=== PATIENT | female | born 1970 | race Caucasian/White ===

== ENCOUNTER 2023-05-07 10:08 | Emergency (ER) | payer SELFPAY ==
[2023-05-07] MEDS ORDERED: Ketorolac 60 MG/2 ML SDV IM ONE (11:10)
[2023-05-07] MEDS ORDERED: Cyclobenzaprine 10 MG Tab PO ONE (11:11)
== END 2023-05-07 13:00 | disposition home or self-care (01) ==
LOC: MW.ED 10:08
DX: M54.6 Pain in thoracic spine (principal)
CPT/HCPCS: 71046; 93005; 96372; 99283; A9270; J1885; 93010

== ENCOUNTER 2023-09-25 08:39 | Emergency (ER) | payer SELFPAY | END 2023-09-25 10:51 | disposition home or self-care (01) | LOC: MW.ED 08:39 | DX: F32.A Depression, unspecified (principal); I10 Essential (primary) hypertension; J45.909 Unspecified asthma, uncomplicated; Z75.8 Other problems related to medical facilities and other health care | CPT/HCPCS: 99282; 99283 ==

== ENCOUNTER 2024-02-05 07:23 | Emergency (ER) | payer SELFPAY ==
[2024-02-05] MEDS: Sodium Chloride 0.9% 10 ML Syringe FLUSH PRN (07:58)
[2024-02-05] MEDS: Albuterol/Ipratropium 3.0-0.5 MG/3 ML Neb Soln NEB ONE (07:58)
[2024-02-05] MEDS: Sodium Chloride 0.9% 2.5 ML Syringe FLUSH PRN (07:58)
[2024-02-05 08:16] LABS: BASOPHILS ABSOLUTE AUTO 0.07 K/uL (0.00-0.20); BASOPHILS PERCENT AUTO 1.5 % (0.0-1.0); EOSINOPHILS ABSOLUTE AUTO 0.33 K/uL (0.00-0.45); EOSINOPHILS PERCENT AUTO 6.9 % (0.0-6.0); HEMATOCRIT 43.3 % (37.0-47.0); HEMOGLOBIN 14.6 g/dL (12.0-16.0); IMMATURE GRAN ABSOLUTE AUTO 0.01 K/uL (0.00-0.05); IMMATURE GRAN PERCENT AUTO 0.2 % (0.0-0.4); LYMPHOCYTES ABSOLUTE AUTO 1.95 K/uL (1.00-4.80); LYMPHOCYTES PERCENT AUTO 40.6 % (24.0-44.0); MEAN CORPUSCULAR HEMOGLOBIN 29.9 pg (28.0-32.0); MEAN CORPUSCULAR HGB CONC 33.7 g/dL (32.0-36.0); MEAN CORPUSCULAR VOLUME 88.7 fL (83.0-99.0); MEAN PLATELET VOLUME 9.3 fL (9.4-12.3); MONOCYTES ABSOLUTE AUTO 0.41 K/uL (0.00-0.80); MONOCYTES PERCENT AUTO 8.5 % (0.0-8.0); NEUTROPHILS ABSOLUTE AUTO 2.03 K/uL (1.80-7.70); NEUTROPHILS PERCENT AUTO 42.3 % (41.0-71.0); PLATELET COUNT,PLT 289 K/uL (150-400); RED BLOOD CELL COUNT 4.88 M/uL (4.10-5.30)
[2024-02-05 08:42] LABS: ALBUMIN 3.7 g/dL (3.4-5.0); BILIRUBIN TOTAL 0.4 mg/dL (0.2-1.0); CALCIUM 9.2 mg/dL (8.5-10.1); CARBON DIOXIDE,CO2 24.5 mmol/L (21.0-32.0); CREATININE 0.7 mg/dL (0.6-1.0); EST CRCL DRUG DOSING (CG) 89.01 mL/min; PROTEIN TOTAL,TP 7.4 g/dL (6.4-8.2)
[2024-02-05] MEDS: Lisinopril 10 MG Tab PO ONE (10:44)
== END 2024-02-05 11:34 | disposition home or self-care (01) ==
LOC: MW.ED 07:23
DX: R42 Dizziness and giddiness (principal); R07.9 Chest pain, unspecified
CPT/HCPCS: 36415; 70450; 71045; 80053; 84484; 85025; 85379; 93005; 99285; J3490; 99283; J7620-GY

== ENCOUNTER 2024-05-20 03:50 | Emergency (ER) | payer SELFPAY ==
[2024-05-20] MEDS: Sodium Chloride 0.9% 10 ML Syringe FLUSH PRN (04:25)
[2024-05-20] MEDS: Ondansetron 4 MG/2 ML SDV IVPUSH ONE (04:25)
[2024-05-20] MEDS: Morphine 4 MG/ML Syringe IVPUSH ONE (04:25)
[2024-05-20] MEDS: Sodium Chloride 0.9% 1,000 ML IV ONE (04:25)
[2024-05-20 04:26] LABS: BASOPHILS ABSOLUTE AUTO 0.06 K/uL (0.00-0.20); BASOPHILS PERCENT AUTO 1.1 % (0.0-1.0); EOSINOPHILS ABSOLUTE AUTO 0.22 K/uL (0.00-0.45); EOSINOPHILS PERCENT AUTO 3.9 % (0.0-6.0); HEMOGLOBIN 13.7 g/dL (12.0-16.0); IMMATURE GRAN ABSOLUTE AUTO 0.01 K/uL (0.00-0.05); IMMATURE GRAN PERCENT AUTO 0.2 % (0.0-0.4); LYMPHOCYTES ABSOLUTE AUTO 1.59 K/uL (1.00-4.80); LYMPHOCYTES PERCENT AUTO 28.5 % (24.0-44.0); MEAN CORPUSCULAR HEMOGLOBIN 29.9 pg (28.0-32.0); MEAN CORPUSCULAR HGB CONC 34.3 g/dL (32.0-36.0); MEAN CORPUSCULAR VOLUME 87.3 fL (83.0-99.0); MEAN PLATELET VOLUME 9.7 fL (9.4-12.3); MONOCYTES ABSOLUTE AUTO 0.56 K/uL (0.00-0.80); NEUTROPHILS ABSOLUTE AUTO 3.14 K/uL (1.80-7.70); NEUTROPHILS PERCENT AUTO 56.3 % (41.0-71.0); PLATELET COUNT,PLT 263 K/uL (150-400); RED BLOOD CELL COUNT 4.58 M/uL (4.10-5.30); WHITE BLOOD CELL COUNT,WBC 5.58 K/uL (3.9-11.3)
[2024-05-20 04:49] LABS: A/G RATIO 1.1 (0.9-1.6); ALBUMIN 3.7 g/dL (3.4-5.0); BILIRUBIN TOTAL 0.5 mg/dL (0.2-1.0); CALCIUM 9.3 mg/dL (8.5-10.1); CARBON DIOXIDE,CO2 26.5 mmol/L (21.0-32.0); CREATININE 0.7 mg/dL (0.6-1.0); EST CRCL DRUG DOSING (CG) 89.01 mL/min; POTASSIUM,K 3.7 mmol/L (3.5-5.1); PROTEIN TOTAL,TP 7.2 g/dL (6.4-8.2)
[2024-05-20] MEDS: Ketorolac 30 MG/ML SDV IVPUSH ONE (05:36)
== END 2024-05-20 05:57 | disposition home or self-care (01) ==
LOC: MW.ED 03:50
DX: R10.11 Right upper quadrant pain (principal); R10.811 Right upper quadrant abdominal tenderness; I10 Essential (primary) hypertension; J45.909 Unspecified asthma, uncomplicated; Z79.899 Other long term (current) drug therapy
CPT/HCPCS: 36415; 76705; 80053; 83605; 83690; 85025; 96361; 96374; 96375; 99284; J1885; J2270; J2405; J3490; J7030

== ENCOUNTER 2024-05-30 00:27 | Emergency (ER) | payer SELFPAY | END 2024-05-30 01:41 | disposition home or self-care (01) | LOC: MW.ED 00:27 | DX: H10.31 Unspecified acute conjunctivitis, right eye (principal); F17.210 Nicotine dependence, cigarettes, uncomplicated; K21.9 Gastro-esophageal reflux disease without esophagitis; Z79.899 Other long term (current) drug therapy | CPT/HCPCS: 99283 ==

== ENCOUNTER 2024-06-21 21:16 | Emergency (ER) | payer SELFPAY | END 2024-06-21 23:21 | disposition home or self-care (01) | LOC: MW.ED 21:16 | DX: M62.830 Muscle spasm of back (principal); J45.909 Unspecified asthma, uncomplicated; K21.9 Gastro-esophageal reflux disease without esophagitis | CPT/HCPCS: 99283 ==

== ENCOUNTER 2024-06-24 10:06 | Emergency (ER) | payer SELFPAY ==
[2024-06-24] MEDS: Methocarbamol 750 MG Tab PO STA (11:39)
[2024-06-24] MEDS: traMADol 50 MG Tab PO STA (11:39)
[2024-06-24] MEDS: Triamcinolone Acetonide 40 MG/ML 1 ML SDV INJECT STA (11:40)
== END 2024-06-24 12:50 | disposition home or self-care (01) ==
LOC: MW.ED 10:06
DX: M62.830 Muscle spasm of back (principal); J45.909 Unspecified asthma, uncomplicated; Z91.040 Latex allergy status; Z79.899 Other long term (current) drug therapy; Z75.8 Other problems related to medical facilities and other health care
CPT/HCPCS: 96372; 99283; A9270; J3301